=== PATIENT | female | born 1955 | race Caucasian/White ===

== ENCOUNTER 2021-04-28 23:08 | Inpatient (IN) ==
[2021-04-29 00:06] LABS: Basophils % 0.2 %; Hematocrit 35.2 % (35.3-44.9); Hemoglobin 11.9 g/dL (11.5-15.4); Immature Granulocytes % 0.7 % (0-4); Lymphocytes # 0.7 K/mcL (0.6-4.6); Mean Corpuscular HGB Conc 33.8 g/dL (31.6-35.5); Mean Corpuscular Hemoglobin 32.9 pg (28.0-33.3); Mean Corpuscular Volume 97.2 fL (83.0-100.0); Mean Platelet Volume 9.7 fL (9.4-12.4); Monocytes # 0.4 K/mcL (0.0-1.3); Monocytes % 6.5 %; Neutrophils # 4.4 K/mcL (1.6-8.9); Platelet Count 259 K/mcL (140-400); Red Blood Count 3.62 M/mcL (3.82-4.97); Red Cell Distribution Width 11.9 % (11.5-14.5); Segmented Neutrophils % 80.6 %; White Blood Count 5.5 K/mcL (4.3-11.1)
[2021-04-29 00:16] LABS: INR 1.1; Prothrombin Time 12.4 Seconds (9.4-12.1)
[2021-04-29 00:18] LABS: Activated Partial Thrombo Time 30.2 Seconds (26.0-36.0)
[2021-04-29 00:28] LABS: Alanine Aminotransferase 18 Units/L (7-52); Albumin 3.4 g/dL (3.5-5.7); Albumin/Globulin Ratio 1.1 (1.1-2.2); Alkaline Phosphatase 47 Units/L (34-104); Aspartate Amino Transferase 28 Units/L (13-39); BUN/Creatinine Ratio 19 (6-26); Bilirubin,Indirect 0.3 mg/dL (0.0-1.0); Bilirubin,Total 0.3 mg/dL (0.3-1.0); Blood Urea Nitrogen 10 mg/dL (8-23); Calcium 8.4 mg/dL (8.6-10.3); Carbon Dioxide 30 mEq/L (23-29); Chloride 100 mEq/L (98-107); Globulin 3.1 g/dL (2.4-3.5); Glucose 134 mg/dL (70-105); Osmolality,Calculated 285 (280-300); Potassium 3.4 mEq/L (3.5-5.1); Sodium 137 mEq/L (136-145); Total Protein 6.5 g/dL (6.4-8.9); Troponin I 0.03 ng/mL (< 0.04); eGFR For African Americans > 60 (> 60); eGFR For Non-African Americans > 60 (> 60)
[2021-04-29 00:31] LABS: Platelet Estimate Normal (Normal); Reactive Lymphocytes Present (Not Present)
[2021-04-29] MEDS ORDERED: Isovue-370 500 ML BOTTLE IVP ONE (00:43)
[2021-04-29 01:03] LABS: Influenza A PCR Negative (Negative); Influenza B PCR Negative (Negative); Resp. Syncytial Virus PCR Negative (Negative)
[2021-04-29 01:07] LABS: SARS-CoV-2 by PCR (In House) Positive (Negative)
[2021-04-29] MEDS ORDERED: Dexamethasone Sodium Phos/PF 10 MG/ML VIAL IVP ONE (01:54)
[2021-04-29] MEDS ORDERED: Ondansetron 4 MG/2 ML VIAL IVP ONE (02:47)
[2021-04-29] MEDS ORDERED: Naloxone 0.4 MG/ML INJ IVP PRN (03:28)
[2021-04-29] MEDS ORDERED: Ipratropium 1 PUFF INHALER IH PRN (04:00)
[2021-04-29] MEDS: *HR* Enoxaparin 40 MG/0.4 ML SYRINGE SQ SCH (08:10)
[2021-04-29] MEDS ORDERED: Remdesivir 200 MG in 0.9 % Sodium Chloride 100 ML IVPB ONE (09:00)
[2021-04-29 10:52] LABS: Hematocrit 37.6 % (35.3-44.9); Hemoglobin 12.5 g/dL (11.5-15.4); Mean Corpuscular HGB Conc 33.2 g/dL (31.6-35.5); Mean Corpuscular Hemoglobin 32.5 pg (28.0-33.3); Mean Corpuscular Volume 97.7 fL (83.0-100.0); Mean Platelet Volume 9.8 fL (9.4-12.4); Platelet Count 294 K/mcL (140-400); Red Blood Count 3.85 M/mcL (3.82-4.97); Red Cell Distribution Width 11.9 % (11.5-14.5); White Blood Count 4.5 K/mcL (4.3-11.1)
[2021-04-29 11:13] LABS: D-Dimer 778 ng/mLFEU (0-500)
[2021-04-29 11:14] LABS: BUN/Creatinine Ratio 17 (6-26); Blood Urea Nitrogen 10 mg/dL (8-23); C-Reactive Protein 271 mg/L (Less than 10); Calcium 9.1 mg/dL (8.6-10.3); Carbon Dioxide 29 mEq/L (23-29); Chloride 98 mEq/L (98-107); Creatine Kinase 61 Units/L (30-223); Glucose 149 mg/dL (70-105); Lactate Dehydrogenase 413 Units/L (140-271); Osmolality,Calculated 292 (280-300); Potassium 3.2 mEq/L (3.5-5.1); Sodium 140 mEq/L (136-145); eGFR For African Americans > 60 (> 60); eGFR For Non-African Americans > 60 (> 60)
[2021-04-29] MEDS: Ondansetron 4 MG/2 ML VIAL IVP PRN (11:24)
[2021-04-29 12:16] LABS: Fibrinogen 760 mg/dL (169-393)
[2021-04-29 13:25] LABS: Ferritin 635 ng/mL (10-120)
[2021-04-29] MEDS: Ipratropium 1 PUFF INHALER IH SCH ×3 (16:27→23:34)
[2021-04-29] MEDS: Melatonin 3 MG TABLET PO PRN (20:02)
[2021-04-29] MEDS: Acetaminophen 325 MG TABLET PO PRN (20:02)
[2021-04-29] MEDS: traZODone 50 MG TABLET PO PRN (23:51)
[2021-04-30] MEDS: Ipratropium 1 PUFF INHALER IH SCH ×6 (03:29→23:20)
[2021-04-30 07:07] LABS: Basophils % 0.3 %; Hematocrit 38.5 % (35.3-44.9); Hemoglobin 12.6 g/dL (11.5-15.4); Immature Granulocytes % 0.7 % (0-4); Lymphocytes # 0.9 K/mcL (0.6-4.6); Lymphocytes % 13.2 %; Mean Corpuscular HGB Conc 32.7 g/dL (31.6-35.5); Mean Corpuscular Hemoglobin 31.6 pg (28.0-33.3); Mean Corpuscular Volume 96.5 fL (83.0-100.0); Mean Platelet Volume 9.7 fL (9.4-12.4); Monocytes # 0.6 K/mcL (0.0-1.3); Monocytes % 8.1 %; Neutrophils # 5.3 K/mcL (1.6-8.9); Platelet Count 330 K/mcL (140-400); Red Blood Count 3.99 M/mcL (3.82-4.97); Red Cell Distribution Width 12.1 % (11.5-14.5); Segmented Neutrophils % 77.7 %
[2021-04-30 07:10] LABS: White Blood Count 6.8 K/mcL (4.3-11.1)
[2021-04-30 07:17] LABS: Fibrinogen 578 mg/dL (169-393)
[2021-04-30] MEDS: *HR* Enoxaparin 40 MG/0.4 ML SYRINGE SQ SCH (07:27)
[2021-04-30 07:31] LABS: BUN/Creatinine Ratio 25 (6-26); Blood Urea Nitrogen 16 mg/dL (8-23); Carbon Dioxide 30 mEq/L (23-29); Chloride 102 mEq/L (98-107); D-Dimer 1175 ng/mLFEU (0-500); Glucose 121 mg/dL (70-105); Lactate Dehydrogenase 387 Units/L (140-271); Osmolality,Calculated 292 (280-300); Sodium 140 mEq/L (136-145); eGFR For African Americans > 60 (> 60); eGFR For Non-African Americans > 60 (> 60)
[2021-04-30 08:03] LABS: Albumin 3.7 g/dL (3.5-5.7); Albumin/Globulin Ratio 1.2 (1.1-2.2); Bilirubin,Direct 0.1 mg/dL (0.0-0.2); Bilirubin,Indirect 0.2 mg/dL (0.0-1.0); Bilirubin,Total 0.3 mg/dL (0.3-1.0); Globulin 3.2 g/dL (2.4-3.5); Total Protein 6.9 g/dL (6.4-8.9)
[2021-04-30 09:02] LABS: Magnesium 2.1 mg/dL (1.6-2.6); Phosphorous 2.9 mg/dL (2.7-4.5)
[2021-04-30 09:09] LABS: Ferritin 608 ng/mL (10-120)
[2021-04-30 09:58] LABS: C-Reactive Protein 175 mg/L (Less than 10)
[2021-04-30] MEDS: Ondansetron 4 MG/2 ML VIAL IVP PRN ×3 (11:00→23:09)
[2021-04-30] MEDS: Remdesivir 100 MG in 0.9 % Sodium Chloride 100 ML IVPB SCH (11:01)
[2021-04-30] MEDS: Furosemide 40 MG/4 ML VIAL IVP SCH (11:01)
[2021-04-30] MEDS: traZODone 50 MG TABLET PO SCH (20:22)
[2021-04-30] MEDS: Acetaminophen 325 MG TABLET PO PRN (20:33)
[2021-05-01 00:46] LABS: Basophils % 0.1 %; Hematocrit 38.3 % (35.3-44.9); Hemoglobin 12.5 g/dL (11.5-15.4); Immature Granulocytes % 0.5 % (0-4); Lymphocytes # 0.7 K/mcL (0.6-4.6); Lymphocytes % 9.8 %; Mean Corpuscular HGB Conc 32.6 g/dL (31.6-35.5); Mean Corpuscular Hemoglobin 31.4 pg (28.0-33.3); Mean Corpuscular Volume 96.2 fL (83.0-100.0); Mean Platelet Volume 9.6 fL (9.4-12.4); Monocytes # 0.5 K/mcL (0.0-1.3); Neutrophils # 6.3 K/mcL (1.6-8.9); Platelet Count 422 K/mcL (140-400); Red Blood Count 3.98 M/mcL (3.82-4.97); Red Cell Distribution Width 12.2 % (11.5-14.5); Segmented Neutrophils % 83.6 %; White Blood Count 7.6 K/mcL (4.3-11.1)
[2021-05-01 01:06] LABS: Albumin 3.6 g/dL (3.5-5.7); Albumin/Globulin Ratio 1.1 (1.1-2.2); Bilirubin,Direct 0.1 mg/dL (0.0-0.2); Bilirubin,Indirect 0.2 mg/dL (0.0-1.0); Bilirubin,Total 0.3 mg/dL (0.3-1.0); Globulin 3.2 g/dL (2.4-3.5); Total Protein 6.8 g/dL (6.4-8.9)
[2021-05-01 01:10] LABS: BUN/Creatinine Ratio 32 (6-26); Blood Urea Nitrogen 24 mg/dL (8-23); Calcium 8.8 mg/dL (8.6-10.3); Carbon Dioxide 32 mEq/L (23-29); Chloride 101 mEq/L (98-107); Glucose 147 mg/dL (70-105); Osmolality,Calculated 303 (280-300); Potassium 3.2 mEq/L (3.5-5.1); Sodium 143 mEq/L (136-145); eGFR For African Americans > 60 (> 60); eGFR For Non-African Americans > 60 (> 60)
[2021-05-01] MEDS: Ipratropium 1 PUFF INHALER IH SCH ×6 (03:47→23:39)
[2021-05-01] MEDS: *HR* Enoxaparin 40 MG/0.4 ML SYRINGE SQ SCH (05:53)
[2021-05-01] MEDS: Remdesivir 100 MG in 0.9 % Sodium Chloride 100 ML IVPB SCH (08:06)
[2021-05-01] MEDS: Metoprolol XL (24 HR) Succ 25 MG TAB.ER.24H PO SCH (08:07)
[2021-05-01] MEDS: Furosemide 40 MG/4 ML VIAL IVP SCH (08:07)
[2021-05-01] MEDS: Ondansetron 4 MG/2 ML VIAL IVP PRN ×2 (08:08→17:33)
[2021-05-01] MEDS: Aspirin Enteric Coated 81 MG Tablet PO SCH (08:08)
[2021-05-01] MEDS ORDERED: *HR* Alteplase (Cathflo) 2 MG VIAL IVP ONE (17:55)
[2021-05-01] MEDS ORDERED: Water for inj. (sterile) 10 ML ONE (18:41)
[2021-05-01] MEDS: traZODone 50 MG TABLET PO SCH (21:01)
[2021-05-02] MEDS: Ipratropium 1 PUFF INHALER IH SCH ×5 (03:50→20:44)
[2021-05-02] MEDS: *HR* Enoxaparin 40 MG/0.4 ML SYRINGE SQ SCH (06:47)
[2021-05-02] MEDS: Ondansetron 4 MG/2 ML VIAL IVP PRN ×3 (06:53→18:12)
[2021-05-02 07:24] LABS: Fibrinogen 367 mg/dL (169-393)
[2021-05-02 07:26] LABS: D-Dimer 1012 ng/mLFEU (0-500)
[2021-05-02 08:06] LABS: Basophils % 0.1 %; Hemoglobin 11.9 g/dL (11.5-15.4); Immature Granulocytes % 0.9 % (0-4); Lymphocytes # 1.4 K/mcL (0.6-4.6); Lymphocytes % 18.6 %; Mean Corpuscular HGB Conc 33.1 g/dL (31.6-35.5); Mean Corpuscular Hemoglobin 32.2 pg (28.0-33.3); Mean Corpuscular Volume 97.6 fL (83.0-100.0); Mean Platelet Volume 9.9 fL (9.4-12.4); Monocytes # 0.7 K/mcL (0.0-1.3); Neutrophils # 5.5 K/mcL (1.6-8.9); Platelet Count 438 K/mcL (140-400); Red Blood Count 3.69 M/mcL (3.82-4.97); Red Cell Distribution Width 12.3 % (11.5-14.5); Segmented Neutrophils % 71.4 %; White Blood Count 7.7 K/mcL (4.3-11.1)
[2021-05-02] MEDS: Aspirin Enteric Coated 81 MG Tablet PO SCH (08:18)
[2021-05-02] MEDS: Metoprolol XL (24 HR) Succ 25 MG TAB.ER.24H PO SCH (08:19)
[2021-05-02] MEDS: Furosemide 40 MG/4 ML VIAL IVP SCH (08:19)
[2021-05-02] MEDS: Remdesivir 100 MG in 0.9 % Sodium Chloride 100 ML IVPB SCH (08:20)
[2021-05-02 08:21] LABS: Alanine Aminotransferase 19 Units/L (7-52); Albumin 3.4 g/dL (3.5-5.7); Albumin/Globulin Ratio 1.3 (1.1-2.2); Alkaline Phosphatase 43 Units/L (34-104); Aspartate Amino Transferase 21 Units/L (13-39); BUN/Creatinine Ratio 37 (6-26); Bilirubin,Indirect 0.3 mg/dL (0.0-1.0); Bilirubin,Total 0.3 mg/dL (0.3-1.0); Blood Urea Nitrogen 27 mg/dL (8-23); Calcium 8.5 mg/dL (8.6-10.3); Carbon Dioxide 32 mEq/L (23-29); Chloride 100 mEq/L (98-107); Globulin 2.7 g/dL (2.4-3.5); Glucose 116 mg/dL (70-105); Lactate Dehydrogenase 309 Units/L (140-271); Osmolality,Calculated 292 (280-300); Potassium 3.3 mEq/L (3.5-5.1); Sodium 138 mEq/L (136-145); Total Protein 6.1 g/dL (6.4-8.9); eGFR For African Americans > 60 (> 60); eGFR For Non-African Americans > 60 (> 60)
[2021-05-02 08:25] LABS: Ferritin 442 ng/mL (10-120)
[2021-05-02 08:28] LABS: C-Reactive Protein 47 mg/L (Less than 10)
[2021-05-02] MEDS: traZODone 50 MG TABLET PO SCH (20:43)
[2021-05-02] MEDS: *HR* LORazepam 0.5 MG TABLET PO PRN (20:43)
[2021-05-03] MEDS: Ipratropium 1 PUFF INHALER IH SCH ×7 (00:29→23:49)
[2021-05-03] MEDS: *HR* Enoxaparin 40 MG/0.4 ML SYRINGE SQ SCH (05:47)
[2021-05-03] MEDS: Ondansetron 4 MG/2 ML VIAL IVP PRN ×2 (07:47→19:55)
[2021-05-03 08:15] LABS: Basophils % 0.1 %; Eosinophils % 0.1 %; Hematocrit 37.1 % (35.3-44.9); Lymphocytes # 1.3 K/mcL (0.6-4.6); Lymphocytes % 19.5 %; Mean Corpuscular HGB Conc 32.3 g/dL (31.6-35.5); Mean Corpuscular Hemoglobin 31.3 pg (28.0-33.3); Mean Corpuscular Volume 96.6 fL (83.0-100.0); Mean Platelet Volume 9.5 fL (9.4-12.4); Monocytes # 0.6 K/mcL (0.0-1.3); Monocytes % 9.3 %; Neutrophils # 4.7 K/mcL (1.6-8.9); Platelet Count 427 K/mcL (140-400); Red Blood Count 3.84 M/mcL (3.82-4.97); Red Cell Distribution Width 12.2 % (11.5-14.5); White Blood Count 6.7 K/mcL (4.3-11.1)
[2021-05-03 08:34] LABS: Alanine Aminotransferase 21 Units/L (7-52); Albumin 3.4 g/dL (3.5-5.7); Albumin/Globulin Ratio 1.3 (1.1-2.2); Alkaline Phosphatase 41 Units/L (34-104); Aspartate Amino Transferase 20 Units/L (13-39); BUN/Creatinine Ratio 32 (6-26); Bilirubin,Direct 0.1 mg/dL (0.0-0.2); Bilirubin,Indirect 0.3 mg/dL (0.0-1.0); Bilirubin,Total 0.4 mg/dL (0.3-1.0); Blood Urea Nitrogen 22 mg/dL (8-23); Calcium 8.4 mg/dL (8.6-10.3); Carbon Dioxide 35 mEq/L (23-29); Chloride 99 mEq/L (98-107); Globulin 2.7 g/dL (2.4-3.5); Glucose 108 mg/dL (70-105); Osmolality,Calculated 286 (280-300); Potassium 3.2 mEq/L (3.5-5.1); Sodium 136 mEq/L (136-145); Total Protein 6.1 g/dL (6.4-8.9); eGFR For African Americans > 60 (> 60); eGFR For Non-African Americans > 60 (> 60)
[2021-05-03] MEDS: Furosemide 40 MG/4 ML VIAL IVP SCH (09:59)
[2021-05-03] MEDS: Metoprolol XL (24 HR) Succ 25 MG TAB.ER.24H PO SCH (10:00)
[2021-05-03] MEDS: Aspirin Enteric Coated 81 MG Tablet PO SCH (10:00)
[2021-05-03] MEDS ORDERED: Ondansetron 4 MG/2 ML VIAL IVP ONE (10:00)
[2021-05-03] MEDS: *HR* LORazepam 0.5 MG TABLET PO PRN ×2 (10:00→22:38)
[2021-05-03] MEDS: Remdesivir 100 MG in 0.9 % Sodium Chloride 100 ML IVPB SCH (10:00)
[2021-05-03] MEDS: *HR* OxyCODONE Immed Rel 5 MG TABLET PO PRN (12:46)
[2021-05-03] MEDS: traZODone 50 MG TABLET PO PRN (19:55)
[2021-05-03] MEDS: traZODone 50 MG TABLET PO SCH (21:13)
[2021-05-03] MEDS: Melatonin 3 MG TABLET PO PRN (22:38)
[2021-05-04 03:58] LABS: Basophils % 0.2 %; Hemoglobin 11.6 g/dL (11.5-15.4); Immature Granulocytes % 1.1 % (0-4); Lymphocytes # 0.9 K/mcL (0.6-4.6); Lymphocytes % 13.6 %; Mean Corpuscular HGB Conc 32.2 g/dL (31.6-35.5); Mean Corpuscular Hemoglobin 31.7 pg (28.0-33.3); Mean Corpuscular Volume 98.4 fL (83.0-100.0); Mean Platelet Volume 9.9 fL (9.4-12.4); Monocytes # 0.5 K/mcL (0.0-1.3); Monocytes % 8.1 %; Neutrophils # 5.1 K/mcL (1.6-8.9); Platelet Count 423 K/mcL (140-400); Red Blood Count 3.66 M/mcL (3.82-4.97); Red Cell Distribution Width 12.2 % (11.5-14.5); White Blood Count 6.6 K/mcL (4.3-11.1)
[2021-05-04] MEDS: Ipratropium 1 PUFF INHALER IH SCH ×6 (04:11→23:57)
[2021-05-04 04:12] LABS: Fibrinogen 360 mg/dL (169-393)
[2021-05-04 04:14] LABS: Albumin 3.3 g/dL (3.5-5.7); Albumin/Globulin Ratio 1.3 (1.1-2.2); Bilirubin,Indirect 0.3 mg/dL (0.0-1.0); Bilirubin,Total 0.3 mg/dL (0.3-1.0); Globulin 2.6 g/dL (2.4-3.5); Total Protein 5.9 g/dL (6.4-8.9)
[2021-05-04 04:15] LABS: BUN/Creatinine Ratio 38 (6-26); Blood Urea Nitrogen 27 mg/dL (8-23); C-Reactive Protein 30 mg/L (Less than 10); Calcium 8.6 mg/dL (8.6-10.3); Carbon Dioxide 33 mEq/L (23-29); Chloride 102 mEq/L (98-107); Glucose 147 mg/dL (70-105); Lactate Dehydrogenase 286 Units/L (140-271); Osmolality,Calculated 286 (280-300); Potassium 4.1 mEq/L (3.5-5.1); Sodium 134 mEq/L (136-145); eGFR For African Americans > 60 (> 60); eGFR For Non-African Americans > 60 (> 60)
[2021-05-04 04:17] LABS: D-Dimer 568 ng/mLFEU (0-500)
[2021-05-04 04:34] LABS: Ferritin 364 ng/mL (10-120)
[2021-05-04] MEDS: *HR* Enoxaparin 40 MG/0.4 ML SYRINGE SQ SCH (05:20)
[2021-05-04] MEDS: Metoprolol XL (24 HR) Succ 25 MG TAB.ER.24H PO SCH (07:43)
[2021-05-04] MEDS: Furosemide 40 MG/4 ML VIAL IVP SCH (07:43)
[2021-05-04] MEDS: Ondansetron 4 MG/2 ML VIAL IVP PRN ×4 (07:43→21:16)
[2021-05-04] MEDS: Aspirin Enteric Coated 81 MG Tablet PO SCH (07:43)
[2021-05-04] MEDS: traZODone 50 MG TABLET PO SCH (21:06)
[2021-05-05] MEDS: Ipratropium 1 PUFF INHALER IH SCH ×5 (03:57→19:28)
[2021-05-05] MEDS: *HR* Enoxaparin 40 MG/0.4 ML SYRINGE SQ SCH (06:38)
[2021-05-05] MEDS: Furosemide 40 MG/4 ML VIAL IVP SCH (07:37)
[2021-05-05] MEDS: Ondansetron 4 MG/2 ML VIAL IVP PRN ×2 (07:38→16:59)
[2021-05-05] MEDS: Aspirin Enteric Coated 81 MG Tablet PO SCH (07:38)
[2021-05-05] MEDS: Metoprolol XL (24 HR) Succ 25 MG TAB.ER.24H PO SCH (07:38)
[2021-05-05] MEDS: traZODone 50 MG TABLET PO SCH (22:15)
[2021-05-05] MEDS: *HR* OxyCODONE Immed Rel 5 MG TABLET PO PRN (22:26)
[2021-05-06] MEDS: Ipratropium 1 PUFF INHALER IH SCH ×5 (00:02→15:34)
[2021-05-06 03:24] LABS: Basophils % 0.3 %; Hematocrit 37.2 % (35.3-44.9); Immature Granulocytes % 1.8 % (0-4); Lymphocytes # 1.6 K/mcL (0.6-4.6); Lymphocytes % 19.5 %; Mean Corpuscular HGB Conc 32.3 g/dL (31.6-35.5); Mean Corpuscular Hemoglobin 31.3 pg (28.0-33.3); Mean Corpuscular Volume 97.1 fL (83.0-100.0); Mean Platelet Volume 9.7 fL (9.4-12.4); Monocytes # 0.8 K/mcL (0.0-1.3); Monocytes % 9.4 %; Neutrophils # 5.5 K/mcL (1.6-8.9); Platelet Count 458 K/mcL (140-400); Red Blood Count 3.83 M/mcL (3.82-4.97); Red Cell Distribution Width 12.1 % (11.5-14.5)
[2021-05-06 04:07] LABS: Alanine Aminotransferase 17 Units/L (7-52); Albumin 3.4 g/dL (3.5-5.7); Albumin/Globulin Ratio 1.3 (1.1-2.2); Alkaline Phosphatase 40 Units/L (34-104); Aspartate Amino Transferase 11 Units/L (13-39); BUN/Creatinine Ratio 37 (6-26); Bilirubin,Total 0.4 mg/dL (0.3-1.0); Blood Urea Nitrogen 32 mg/dL (8-23); Calcium 8.8 mg/dL (8.6-10.3); Carbon Dioxide 30 mEq/L (23-29); Chloride 97 mEq/L (98-107); Globulin 2.6 g/dL (2.4-3.5); Glucose 183 mg/dL (70-105); Osmolality,Calculated 290 (280-300); Potassium 3.8 mEq/L (3.5-5.1); Sodium 134 mEq/L (136-145); eGFR For African Americans > 60 (> 60); eGFR For Non-African Americans > 60 (> 60)
[2021-05-06] MEDS: *HR* Enoxaparin 40 MG/0.4 ML SYRINGE SQ SCH (06:39)
[2021-05-06] MEDS: Ondansetron 4 MG/2 ML VIAL IVP PRN ×2 (06:51→15:55)
[2021-05-06] MEDS: Aspirin Enteric Coated 81 MG Tablet PO SCH (09:17)
[2021-05-06] MEDS: Furosemide 40 MG/4 ML VIAL IVP SCH (09:17)
[2021-05-06] MEDS: Metoprolol XL (24 HR) Succ 25 MG TAB.ER.24H PO SCH (09:17)
[2021-05-06 11:26] VITALS: TEMP 98.4
[2021-05-06 12:58] VITALS: O2SAT 94
[2021-05-06 15:52] VITALS: BP 127/78; PULSE 92
== END 2021-05-06 18:15 | disposition home or self-care (01) | DRG 177 ==
LOC: 3NENU 23:08 → EMEROOARM 23:08 → 3NENU 04-29 03:30 → SUATTDRO 04-29 03:39
PROVIDERS: ADMIT Student in an Organized Health Care Education/Training Program; ATTEND Internal Medicine